=== PATIENT | female | born 1995 | race Caucasian/White ===

== ENCOUNTER 2022-02-15 15:13 | Emergency (ER) | payer OTHER ==
[2022-02-15] MEDS ORDERED: Erythromycin Base 0.5% Ophth Oint 1 GM Tube EYERT ONE (15:56)
[2022-02-15] MEDS ORDERED: Proparacaine 0.5% Ophth Soln 15 ML Bottle EYERT ONE (15:56)
== END 2022-02-15 16:40 | disposition home or self-care (01) ==
LOC: JP.ED 15:13
DX: S05.91XA Unspecified injury of right eye and orbit, initial encounter (principal); H10.211 Acute toxic conjunctivitis, right eye; W45.8XXA Other foreign body or object entering through skin, initial encounter; Y92.69 Other specified industrial and construction area as the place of occurrence of the external cause
CPT/HCPCS: 99283; A9270

== ENCOUNTER 2025-03-27 00:29 | Emergency (ER) | payer OTHER ==
[2025-03-27] MEDS: Alum Hydrox/Mag Hydrox/Simeth 15 ML, Lidocaine 2% 15 ML PO ONE (02:08)
== END 2025-03-27 03:26 | disposition home or self-care (01) ==
LOC: JP.ED 00:29
DX: R10.13 Epigastric pain (principal)
CPT/HCPCS: 36415; 71046; 84484; 99285; J3490; A9270-GY